=== PATIENT | male | born 1995 | race Hispanic/Latino ===

== ENCOUNTER 2016-10-19 08:38 | Emergency (ER) | payer SELFPAY ==
[2016-10-19 09:03] VITALS: BP 138/92
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
[2016-10-19 13:30] LABS: Bilirubin,Urine NEG (Negative); Blood,Urine NEG (Negative); Ketones,Urine NEG (Negative); Leukocyte Esterase,Urine TR (Negative); Mucus,Urine FEW /HPF; Nitrite,Urine NEG (Negative); Protein,Urine <15 mg/dL mg/dL (Negative); Urobilinogen,Urine < 2.0 mg/dL (<2.0)
== END 2016-10-19 12:34 | disposition home or self-care (01) ==
LOC: ED 08:38
DX: Z00.00 Encounter for general adult medical examination without abnormal findings (principal)
CPT/HCPCS: 81001; 87591; 99283

== ENCOUNTER 2016-11-08 08:36 | Emergency (ER) | payer OTHER ==
[2016-11-08 09:27] LABS: Anion Gap 15 mmol/L; BUN/Creatinine Ratio 18.88; Blood Urea Nitrogen 17 mg/dL (9-20); Calcium 8.9 mg/dL (8.4-10.2); Carbon Dioxide 27 mmol/L (22-30); Chloride 104.7 mmol/L (98-107); Glucose 108 mg/dL (75-100); Potassium 4.3 mmol/L (3.6-5.0); Sodium 142 mmol/L (137-145)
[2016-11-08 09:34] LABS: Basophils % (Auto) 0.8 % (0.0-1.8); Eosinophils % (Auto) 3.2 % (0.0-4.3); Hematocrit 44.4 % (35.5-45.6); Hemoglobin 15.3 gm/dl (11.8-15.2); Mean Corpuscular HGB Conc 34 % (32-34); Mean Corpuscular Hemoglobin 32 pg (28-32); Mean Corpuscular Volume 93 fl (84-94); Platelet Count 151 K/mm3 (140-440); Red Blood Count 4.79 M/mm3 (3.65-5.03); Red Cell Distribution Width 12.7 % (13.2-15.2); White Blood Count 5.9 K/mm3 (4.5-11.0)
--- NOTE | 2016-11-08 14:31 | Emergency Department Report ---
Chief Complaint: Chest Pain Stated Complaint: CHEST PAIN Time Seen by Provider: 11/08/16 14:26 - HPI History of Present Illness: Chest pain x 1 week PT states he was hoping to get STD testing while in Ed. - ROS Review of Systems: - rash + cp, resolved while in ED - dysuria / discharge - recently treated for STD - Exam Vital Signs: Vital Signs 11/08/16 08:47 Temperature 98.7 F Pulse Rate 83 Respiratory 16 Rate Blood Pressure 117/74 O2 Sat by Pulse 97 Oximetry Physical Exam: PT looks well, non toxic. no acute resp distress steady gait MSE screening note: Focused history and physical exam performed. Due to findings the following was ordered: xr ED Medical Decision Making - Lab Data Result diagrams: 11/08/16 08:52 11/08/16 08:52 ED Disposition for MSE Condition: Stable Referrals: PRIMARY CARE, [Primary Care Provider] - 3-5 Days
--- NOTE | 2016-11-08 15:09 | XRay Report ---
ROUTINE CHEST, TWO VIEWS: HISTORY: chest pain. The trachea, heart, mediastinal contour, lung monroy and bony thorax are unremarkable. IMPRESSION: Unremarkable chest x-ray.
--- NOTE | 2016-11-08 16:08 | Emergency Department Report ---
ED Chest Pain HPI - General Chief Complaint: Chest Pain Stated Complaint: CHEST PAIN Time Seen by Provider: 11/08/16 14:26 Source: patient Mode of arrival: Ambulatory Limitations: No Limitations - History of Present Illness Initial Comments: 21-year-old male here with complaint of intermittent chest pain. Patient states the pain happens when he moves or palpates his chest. His fevers chills nausea vomiting. Denies shortness of breath. No other medical history. MD Complaint: chest pain -: week(s) (1) Onset: during exertion Pain Location: substernal Pain Radiation: none Severity: mild Quality: sharp Consistency: intermittent Improves With: nothing Worsens With: palpation, movement Other Symptoms: denies: cough, fever, syncope, rash, acid taste in mouth, leg swelling, palpitations, burping Treatments Prior to Arrival: none - Related Data Previous Rx's Medication Instructions Recorded Last Taken Type Azithromycin [Zithromax ORAL PWDR] 1 gm PO ONCE #1 packet 10/19/16 Unknown Rx metroNIDAZOLE [Flagyl] 500 mg PO ONCE #4 tab 10/19/16 Unknown Rx Ibuprofen [Motrin] 600 mg PO Q8H PRN #30 tablet 11/08/16 Unknown Rx Allergies Allergy/AdvReac Type Severity Reaction Status Date / Time bee pollen Allergy Unknown Verified 10/19/16 09:00 Heart Score - HEART Score History: Slightly suspicious EKG: Normal Age: < 45 Risk factors: 1-2 risk factors Troponin: < normal limit HEART Score: 1 - Critical Actions Critical Actions: 0-3 pts:0.9-1.7%risk of adverse cardiac event.Candidate for discharge ED Review of Systems ROS: Stated complaint: CHEST PAIN Other details as noted in HPI Comment: All other systems reviewed and negative Constitutional: denies: chills, fever Eyes: denies: eye pain, eye discharge, vision change ENT: denies: ear pain, throat pain Respiratory: denies: cough, shortness of breath, wheezing Cardiovascular: chest pain. denies: palpitations Endocrine: no symptoms reported Gastrointestinal: denies: abdominal pain, nausea, diarrhea Genitourinary: denies: urgency, dysuria Musculoskeletal: denies: back pain, joint swelling, arthralgia Skin: denies: rash, lesions Neurological: denies: headache, weakness, paresthesias Psychiatric: denies: anxiety, depression Hematological/Lymphatic: denies: easy bleeding, easy bruising ED Past Medical Hx - Past Medical History Previous Medical History?: Yes Hx Asthma: Yes Additional medical history: neurofibromytosis. scoliosis - Surgical History Past Surgical History?: Yes Additional Surgical History: tumor removal from nose. tonsillectomy - Family History Family history: no significant - Social History Smoking Status: Current Every Day Smoker Substance Use Type: Alcohol - Medications Home Medications: Home Medications Medication Instructions Recorded Confirmed Last Taken Type Azithromycin [Zithromax ORAL PWDR] 1 gm PO ONCE #1 packet 10/19/16 Unknown Rx metroNIDAZOLE [Flagyl] 500 mg PO ONCE #4 tab 10/19/16 Unknown Rx Ibuprofen [Motrin] 600 mg PO Q8H PRN #30 tablet 11/08/16 Unknown Rx ED Physical Exam - General Limitations: No Limitations General appearance: alert, in no apparent distress - Head Head exam: Present: atraumatic, normocephalic - Eye Eye exam: Present: normal appearance - ENT ENT exam: Present: mucous membranes moist - Neck Neck exam: Present: normal inspection - Respiratory Respiratory exam: Present: normal lung sounds bilaterally. Absent: respiratory distress - Cardiovascular Cardiovascular Exam: Present: regular rate, normal rhythm, normal heart sounds, other (chest wall tender). Absent: systolic murmur, diastolic murmur, rubs, gallop - GI/Abdominal GI/Abdominal exam: Present: soft, normal bowel sounds. Absent: distended, tenderness, guarding, rebound - Rectal Rectal exam: Present: deferred - Extremities Exam Extremities exam: Present: normal inspection - Back Exam Back exam: Present: normal inspection - Neurological Exam Neurological exam: Present: alert, oriented X3 - Psychiatric Psychiatric exam: Present: normal affect, normal mood - Skin Skin exam: Present: warm, dry, intact, normal color. Absent: rash ED Course Vital Signs 11/08/16 08:47 Temperature 98.7 F Pulse Rate 83 Respiratory 16 Rate Blood Pressure 117/74 O2 Sat by Pulse 97 Oximetry ED Medical Decision Making - Lab Data Result diagrams: 11/08/16 08:52 11/08/16 08:52 Laboratory Results - last 24 hr 11/08/16 11/08/16 11/08/16 08:52 08:52 12:01 WBC 5.9 RBC 4.79 Hgb 15.3 H Hct 44.4 MCV 93 MCH 32 MCHC 34 RDW 12.7 L Plt Count 151 Lymph % (Auto) 39.8 H Waller % (Auto) 6.9 Eos % (Auto) 3.2 Baso % (Auto) 0.8 Lymph # 2.3 Waller # 0.4 Eos # 0.2 Baso # 0.0 Seg Neutrophils % 49.3 Seg Neutrophils # 2.9 Sodium 142 Potassium 4.3 Chloride 104.7 Carbon Dioxide 27 Anion Gap 15 BUN 17 Creatinine 0.9 Estimated GFR > 60 BUN/Creatinine Ratio 18.88 Glucose 108 H Calcium 8.9 Troponin T < 0.010 < 0.010 11/08/16 14:40 WBC RBC Hgb Hct MCV MCH MCHC RDW Plt Count Lymph % (Auto) Waller % (Auto) Eos % (Auto) Baso % (Auto) Lymph # Waller # Eos # Baso # Seg Neutrophils % Seg Neutrophils # Sodium Potassium Chloride Carbon Dioxide Anion Gap BUN Creatinine Estimated GFR BUN/Creatinine Ratio Glucose Calcium Troponin T < 0.010 - EKG Data -: EKG Interpreted by Ri - EKG Data 11/08/16 16:07 Sinus rate 74 normal axis normal intervals no ST-T wave changes - Medical Decision Making 21-year-old male here with complaint of chest pain. Likely musculoskeletal. His only risk factor is a history of smoking and family history. Given his age and normal EKG normal troponin I do not suspect this is ACS. Plan to discharge patient home with NSAIDs. Portions of this chart were dictated with dictation software. There may be dictation errors contained within this note. Critical care attestation.: If time is entered above; I have spent that time in minutes in the direct care of this critically ill patient, excluding procedure time. ED Disposition Clinical Impression: Chest pain Disposition: DC-01 TO HOME OR SELFCARE Is pt being admited?: No Condition: Stable Instructions: Chest Pain (ED) Prescriptions: Ibuprofen [Motrin] 600 mg PO Q8H PRN #30 tablet PRN Reason: Pain Referrals: PRIMARY CARE,MD [Primary Care Provider] - 3-5 Days
[2016-11-08 16:19] VITALS: BP 107/67
== END 2016-11-08 16:17 | disposition home or self-care (01) ==
LOC: ED 08:36
DX: R07.2 Precordial pain (principal); J45.909 Unspecified asthma, uncomplicated; F17.200 Nicotine dependence, unspecified, uncomplicated; Z91.030 Bee allergy status
CPT/HCPCS: 36415; 71020; 80048; 84484; 85025

== ENCOUNTER 2018-04-12 17:10 | Emergency (ER) | payer SELFPAY ==
[2018-04-12 17:44] VITALS: BP 137/82
[2018-04-12] MEDS ORDERED: NORCO 5/325 PO ONE (19:34)
[2018-04-12] MEDS ORDERED: DELTASONE PO ONE (19:34)
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
== END 2018-04-12 21:15 | disposition home or self-care (01) ==
LOC: ED 17:10
DX: S05.10XA Contusion of eyeball and orbital tissues, unspecified eye, initial encounter (principal); S09.90XA Unspecified injury of head, initial encounter; M62.838 Other muscle spasm; Y08.89XA Assault by other specified means, initial encounter; Y93.89 Activity, other specified; Y92.89 Other specified places as the place of occurrence of the external cause; Y99.8 Other external cause status
CPT/HCPCS: 70450; 70486; 72125; 99283; J7512